=== PATIENT | female | born 1990 | race Caucasian/White ===

== ENCOUNTER → 2017-03-02 | Outpatient (CLI) | payer OTHER ==
--- NOTE | 2017-03-06 11:38 | SLEEPCENT ---
DATE OF PROCEDURE: 03/02/2017 ORDERED BY: Paulina Jasmine NP Nocturnal polysomnography was performed for evaluation of sleep physiology in this patient with a history of excessive somnolence and nonrestorative sleep. 7 hours and 44 minutes of data were reviewed. There were 416 minutes of sleep identified. Sleep latency was normal at 16 minutes. Rapid eye movement (REM) was normal at 87 minutes. Sleep architecture was severely fragmented with maintenance of reasonable sleep progression in 3 REM cycles. Overall sleep efficiency was 92%, but there was reduction in REM time. EKG showed a sinus rhythm with premature atrial contractions (PACs). Average heart rate 63 beats per minute. EEG showed reasonably normal waveforms for awake and sleep. There were 533 respiratory events identified of 10 seconds in duration or greater for an apnea hypopnea index of 76.9. The events were primarily obstructive, not related to sleep stage nor body posture. Arousals from respiratory events occurred 23.8 times per hour and oxygen desaturations were seen into the low 80s. Remaining measures of sleep physiology were reasonably normal. IMPRESSION: Very severe obstructive sleep apnea syndrome (G47.33). Apnea hypopnea index 76.9. RECOMMENDATION: The patient should be encouraged to return to the sleep disorder center at her earliest convenience for pressure therapy. In the interim, alcohol and sedative avoidance should be practiced and caution exercised during the operation of motor vehicles. Edited: 03/06/2017 Stephanie lara
== END ==
LOC: M SLEEP 19:40
PROVIDERS: ATTEND Nurse Practitioner Adult Health
DX: G47.33 Obstructive sleep apnea (adult) (pediatric) (principal)

== ENCOUNTER → 2017-04-01 | Outpatient (CLI) | payer OTHER | LOC: M SLEEP 20:00 | PROVIDERS: ATTEND Nurse Practitioner Adult Health | DX: G47.33 Obstructive sleep apnea (adult) (pediatric) (principal) ==

== ENCOUNTER → 2017-05-04 | Outpatient (REF) | payer OTHER ==
[2017-05-04 15:15] LABS: CONTROL LINE HCG INT CTR LINE PRESENT; HCG, SERUM QUALITATIVE NEGATIVE (NEGATIVE)
== END ==
LOC: M LABSMT 13:40
DX: N91.1 Secondary amenorrhea (principal)

== ENCOUNTER 2017-10-03 22:11 | Emergency (ER) | payer OTHER ==
[2017-10-03] MEDS: NS 1,000 ML IV (23:00)
[2017-10-03 23:59] LABS: BASO # 0.1 10^3/uL (0.0-0.2); BASO % 0.4 % (0.0-1.0); EOS # 0.1 10^3/uL (0.0-0.50); EOS % 1.2 % (0.0-3.0); HEMATOCRIT 35.9 % (36.0-47.0); HEMOGLOBIN 12.3 g/dl (12.0-15.5); IMMATURE GRANULOCYTE % 0.4 % (0-3.0); LYMPH # 3.6 10^3/uL (1.5-6.5); LYMPH % 31.1 % (24.0-44.0); MEAN CORPUSCULAR HEMOGLOBIN 28.7 pg (27.0-33.0); MEAN CORPUSCULAR HGB CONC 34.3 g/dl (32.0-36.5); MEAN CORPUSCULAR VOLUME 83.9 fl (80.0-96.0); MONO # 0.6 10^3/uL (0.0-0.8); NEUTROPHILS # 7.1 10^3/uL (1.8-7.7); NEUTROPHILS % 61.9 % (36.0-66.0); PLATELET COUNT, AUTOMATED 229 10^3/uL (150-450); RED BLOOD COUNT 4.28 10^6/uL (4.00-5.40); WHITE BLOOD COUNT 11.5 10^3/uL (4.0-10.0)
[2017-10-04 00:23] LABS: ALBUMIN 3.5 GM/DL (3.2-5.2); ALBUMIN/GLOBULIN RATIO 0.95 (1.00-1.93); ALKALINE PHOSPHATASE 87 U/L (45-117); ALT/SGPT 22 U/L (12-78); ANION GAP 9 MEQ/L (8-16); AST/SGOT 14 U/L (7-37); BILIRUBIN,DIRECT < 0.1 MG/DL (0.0-0.2); BILIRUBIN,TOTAL 0.2 MG/DL (0.2-1.0); BLOOD UREA NITROGEN 17 MG/DL (7-18); CALCIUM LEVEL 8.3 MG/DL (8.5-10.1); CARBON DIOXIDE LEVEL 26 MEQ/L (21-32); CHLORIDE LEVEL 106 MEQ/L (98-107); CPK CREATINE PHOSPHOKINASE 123 U/L (26-192); CREATININE FOR GFR 1.17 MG/DL (0.55-1.30); GLUCOSE, FASTING 93 MG/DL (70-100); POTASSIUM SERUM 3.5 MEQ/L (3.5-5.1); SODIUM LEVEL 141 MEQ/L (136-145); TOTAL PROTEIN 7.2 GM/DL (6.4-8.2); TROPONIN I < 0.02 NG/ML (< 0.10)
[2017-10-04 00:29] LABS: CK-MB VALUE MASS < 1.0 NG/ML (<3.6); MB/CK RELATIVE INDEX 0.81 (< OR =4)
[2017-10-04] MEDS ORDERED: ISOVUE-370 76% 100ML VIAL (Q9967) As Ordered (00:46)
[2017-10-04 01:38] LABS: APPEARANCE, URINE CLOUDY (CLEAR); BACTERIA, URINE AUTO 2+ (NEGATIVE); BILIRUBIN, URINE AUTO NEGATIVE (NEGATIVE); BLOOD, URINE BLOOD 3+ (NEGATIVE); COLOR, URINE YELLOW (YELLOW); GLUCOSE, URINE (UA) AUTO NEGATIVE (NEGATIVE); KETONE, URINE AUTO NEGATIVE (NEGATIVE); LEUKOCYTE ESTERASE, URINE AUTO 3+ (NEGATIVE); MUCUS, URINE SMALL (NEGATIVE); NITRITE, URINE AUTO NEGATIVE (NEGATIVE); PROTEIN, URINE AUTO 1+ mg/dL (NEGATIVE); RBC, URINE AUTO TNTC /HPF (0-3); SPECIFIC GRAVITY URINE AUTO 1.014 (1.002-1.035); SQUAMOUS EPITHELIAL CELL UR AU 5 /HPF (0-6); UROBILINOGEN, URINE AUTO 0.2 mg/dL (0.0-2.0); WBC, URINE AUTO 63 /HPF (0-3)
== END 2017-10-04 05:30 | disposition home or self-care (01) ==
LOC: M ED 10-04 05:30
DX: R07.89 Other chest pain (principal); R55 Syncope and collapse; R00.2 Palpitations; R20.9 Unspecified disturbances of skin sensation; Z88.0 Allergy status to penicillin; Z88.1 Allergy status to other antibiotic agents; Z79.899 Other long term (current) drug therapy
CPT/HCPCS: Q9967

== ENCOUNTER → 2017-11-23 | Outpatient (CLI) | payer OTHER | LOC: M SMT 09:27 | DX: R00.2 Palpitations (principal); E66.01 Morbid (severe) obesity due to excess calories; E55.9 Vitamin D deficiency, unspecified ==

== ENCOUNTER → 2017-11-23 | Outpatient (CLI) | payer OTHER ==
[2017-11-23 14:02] LABS: ANION GAP 7 MEQ/L (8-16); BLOOD UREA NITROGEN 15 MG/DL (7-18); CALCIUM LEVEL 9.1 MG/DL (8.5-10.1); CARBON DIOXIDE LEVEL 25 MEQ/L (21-32); CHLORIDE LEVEL 108 MEQ/L (98-107); CHOLESTEROL LEVEL 193 MG/DL (<200); CHOLESTEROL RISK RATIO 3.784 (<5); CREATININE FOR GFR 0.97 MG/DL (0.55-1.30); GLOMERULAR FILTRATION RATE > 60.0 (>60); GLUCOSE, FASTING 86 MG/DL (70-100); HDL CHOLESTEROL 51 MG/DL (> 40); HDL CHOLESTEROL 51 MG/DL (>40); LDL CHOLESTEROL 103.8 MG/DL (<100); NON-HDL-C 142 MG/DL; POTASSIUM SERUM 4.4 MEQ/L (3.5-5.1); SODIUM LEVEL 140 MEQ/L (136-145); TRIGLYCERIDES LEVEL 191 MG/DL (<150)
== END ==
LOC: M SMT 09:28
DX: R00.2 Palpitations (principal); E55.9 Vitamin D deficiency, unspecified; E66.01 Morbid (severe) obesity due to excess calories
CPT/HCPCS: 84443

== ENCOUNTER → 2019-02-03 | Outpatient (CLI) | payer OTHER ==
[~2019-02-03] MED LIST: ATEN25TA PO
--- NOTE | 2019-02-03 11:26 | REP ---
Four views right ankle. Indication: Right ankle pain. Comparison: 12/10/2012. Findings: There is no acute fracture, subluxation or dislocation. Alignment is anatomic. Impression: No acute fracture. Electronically Signed by Frank Nolan DO 02/03/2019 11:17 A
--- NOTE | 2019-02-03 11:36 | REP ---
Four views right foot: 02/03/2019. Indication: Right foot pain. Comparison: 12/10/2012. Findings: There is no acute fracture, subluxation or dislocation. No osseous destructive lesions are present. Bony alignment is anatomic. Impression: No acute fracture. Electronically Signed by Frank Nolan DO 02/03/2019 11:27 A
== END ==
LOC: M SMT 10:56
PROVIDERS: ATTEND Physician Assistant
DX: M25.571 Pain in right ankle and joints of right foot (principal)

== ENCOUNTER → 2019-07-17 | Outpatient (REF) | payer OTHER | LOC: M LAB REF 12:20 | PROVIDERS: ATTEND Nurse Practitioner Family | DX: N76.0 Acute vaginitis (principal) ==

== ENCOUNTER 2019-08-30 04:22 | Emergency (ER) | payer OTHER ==
[~2019-08-30] VITALS: Ht 162.6 cm; Wt 143.9 kg
[2019-08-30] MEDS ORDERED: QC A650T3 PO (04:29)
[2019-08-30] MEDS ORDERED: LEVO50TA5 PO (04:29)
[2019-08-30] MEDS ORDERED: OMEP40CA97 PO (04:29)
[2019-08-30 05:06] LABS: BASO % 0.3 % (0.0-1.0); EOS # 0.1 10^3/uL (0.0-0.5); EOS % 0.8 % (0.0-3.0); HEMATOCRIT 38.2 % (36.0-47.0); HEMOGLOBIN 12.6 g/dl (12.0-15.5); LYMPH # 2.4 10^3/uL (1.5-5.0); LYMPH % 20.2 % (24.0-44.0); MONO # 0.6 10^3/uL (0.0-0.8); MONO % 4.7 % (0.0-5.0); NEUTROPHILS # 8.7 10^3/uL (1.5-8.5); NEUTROPHILS % 73.6 % (36.0-66.0); PLATELET COUNT, AUTOMATED 226 10^3/uL (150-450); RED BLOOD COUNT 4.34 10^6/uL (4.00-5.40); WHITE BLOOD COUNT 11.8 10^3/uL (4.0-10.0)
[2019-08-30 05:29] LABS: ALBUMIN 3.8 GM/DL (3.2-5.2); ALT/SGPT 33 U/L (12-78); BILIRUBIN,DIRECT < 0.1 MG/DL (0.0-0.2); BILIRUBIN,TOTAL 0.3 MG/DL (0.2-1.0); LIPASE 107 U/L (73-393); TOTAL PROTEIN 7.4 GM/DL (6.4-8.2)
[2019-08-30] MEDS ORDERED: MORPHINE 4 MG/ML 1ML VIAL/SYRINGE (J2270) IV ONE (05:45)
[2019-08-30] MEDS ORDERED: GASTROGRAFIN SOLUTION 30ML (Q9963) PO SCH (05:45)
[2019-08-30] MEDS ORDERED: METOCLOPRAMIDE INJ 10MG/2ML VIAL (J2765 PER 1) IV ONE (05:45)
[2019-08-30] MEDS ORDERED: ISOVUE-370 76% 100ML VIAL As Ordered ONE (06:26)
--- NOTE | 2019-08-30 07:09 | REPVR ---
PROCEDURE INFORMATION: Exam: CT Abdomen And Pelvis With Contrast Exam date and time: 08/30/2019 6:19 AM Age: 29 years old Clinical indication: Abdominal pain; Localized; Right; Additional info: R sided pain TECHNIQUE: Imaging protocol: Computed tomography of the abdomen and pelvis with intravenous contrast. Radiation optimization: All CT scans at this facility use at least one of these dose optimization techniques: automated exposure control; mA and/or kV adjustment per patient size (includes targeted exams where dose is matched to clinical indication); or iterative reconstruction. Contrast material: ISO; Contrast volume: 100 ml; Contrast route: AC; COMPARISON: No relevant prior studies available. FINDINGS: Lungs: Bilateral dependent atelectasis. Liver: Mild hepatomegaly. Gallbladder and bile ducts: Cholelithiasis. No specific evidence of acute cholecystitis. Pancreas: Normal. No ductal dilation. Spleen: Normal. No splenomegaly. Adrenals: Normal. No mass. Kidneys and ureters: Normal. No hydronephrosis. Stomach and bowel: Unremarkable. No obstruction. No mucosal thickening. Appendix: No evidence of appendicitis. Intraperitoneal space: Unremarkable. No free air. No significant fluid collection. Vasculature: Unremarkable. No abdominal aortic aneurysm. Lymph nodes: Scattered subcentimeter nonspecific mesenteric lymph nodes. Bladder: Unremarkable as visualized. Reproductive: Unremarkable as visualized. Bones/joints: Unremarkable. No acute fracture. Soft tissues: Small fat containing umbilical hernia. IMPRESSION: Cholelithiasis. No specific evidence of acute cholecystitis. Mild hepatomegaly. No bowel obstruction. Normal appendix. No hydronephrosis or nephrolithiasis bilaterally. Electronically signed by: Maco Howe On 08/30/2019 07:09:17 AM
[2019-08-30 07:48] VITALS: BP 124/67
[2019-09-16] MEDS ORDERED: IBUP-1022 PO (15:14)
== END 2019-08-30 07:50 | disposition home or self-care (01) ==
LOC: M ED 04:22
DX: K80.20 Calculus of gallbladder without cholecystitis without obstruction (principal); I10 Essential (primary) hypertension; E03.9 Hypothyroidism, unspecified; K21.9 Gastro-esophageal reflux disease without esophagitis; E66.9 Obesity, unspecified; Z79.899 Other long term (current) drug therapy; Z79.890 Hormone replacement therapy; Z88.0 Allergy status to penicillin; Z88.1 Allergy status to other antibiotic agents; Z88.8 Allergy status to other drugs, medicaments and biological substances
CPT/HCPCS: 74177; 80047; 80076; 81001; 83690; 84702; 85025; 87086; 96374; 96375; 99284; J2270; J2765; Q9967

== ENCOUNTER → 2019-09-17 | Outpatient (CLI) | payer OTHER ==
[~2019-09-17] MED LIST changes: +IBUP-1022 PO; +LEVO50TA5 PO; +NORC1TAB7 PO; +OMEP40CA97 PO; +QC A650T3 PO
--- NOTE | 2019-09-18 08:42 | ECGEPIP ---
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 No significant change from 10/03/17 Electronically Signed on 09-18-2019 8:42:25 EDT by Preet Raman
== END ==
LOC: M EKG 14:39
PROVIDERS: ATTEND Anesthesiology
DX: I10 Essential (primary) hypertension (principal); E03.9 Hypothyroidism, unspecified; R12 Heartburn; F41.9 Anxiety disorder, unspecified; G47.30 Sleep apnea, unspecified

== ENCOUNTER → 2019-09-20 | Outpatient (CLI) | payer OTHER | LOC: M LABSMTC 09:59 | PROVIDERS: ATTEND Anesthesiology | DX: Z01.818 Encounter for other preprocedural examination (principal); Z11.59 Encounter for screening for other viral diseases | CPT/HCPCS: C9803; U0003 ==

== ENCOUNTER 2019-09-22 14:50 | Emergency (ER) | payer OTHER ==
[~2019-09-22] VITALS: Ht 162.6 cm; Wt 138.0 kg
[~2019-09-22 14:50] MED LIST changes: -NORC1TAB7 PO
[2019-09-22 15:42] LABS: BASO % 0.3 % (0.0-1.0); EOS # 0.1 10^3/uL (0.0-0.5); EOS % 0.7 % (0.0-3.0); HEMATOCRIT 38.4 % (36.0-47.0); HEMOGLOBIN 12.8 g/dl (12.0-15.5); LYMPH # 2.3 10^3/uL (1.5-5.0); LYMPH % 19.8 % (24.0-44.0); MEAN CORPUSCULAR HEMOGLOBIN 29.2 pg (27.0-33.0); MEAN CORPUSCULAR HGB CONC 33.3 g/dl (32.0-36.5); MEAN CORPUSCULAR VOLUME 87.7 fl (80.0-96.0); MONO # 0.6 10^3/uL (0.0-0.8); MONO % 5.5 % (0.0-5.0); NEUTROPHILS # 8.5 10^3/uL (1.5-8.5); NEUTROPHILS % 73.3 % (36.0-66.0); PLATELET COUNT, AUTOMATED 185 10^3/uL (150-450); RED BLOOD COUNT 4.38 10^6/uL (4.00-5.40); WHITE BLOOD COUNT 11.5 10^3/uL (4.0-10.0)
[2019-09-22 16:07] LABS: HCG, SERUM QUALITATIVE NEGATIVE (NEGATIVE)
[2019-09-22 16:58] LABS: ALT/SGPT 235 U/L (12-78); BILIRUBIN,DIRECT 0.8 MG/DL (0.0-0.2); BILIRUBIN,TOTAL 1.4 MG/DL (0.2-1.0); BLOOD UREA NITROGEN 10 MG/DL (7-18); CALCIUM LEVEL 9.1 MG/DL (8.5-10.1); CARBON DIOXIDE LEVEL 23 MEQ/L (21-32); CHLORIDE LEVEL 107 MEQ/L (98-107); CREATININE FOR GFR 0.96 MG/DL (0.55-1.30); GLOMERULAR FILTRATION RATE > 60.0 (>60); GLUCOSE, FASTING 91 MG/DL (70-100); LIPASE 96 U/L (73-393); SODIUM LEVEL 138 MEQ/L (136-145); TOTAL PROTEIN 7.4 GM/DL (6.4-8.2)
[2019-09-22 17:10] LABS: AMYLASE 42 U/L (25-115)
[2019-09-22 18:05] VITALS: BP 136/79
--- NOTE | 2019-09-23 03:35 | REP ---
RIGHT UPPER QUADRANT ULTRASOUND: Real-time sonographic evaluation of right upper quadrant performed. Sludge and tiny stones are seen in the gallbladder. There is gallbladder wall thickening up to 6 mm. Gallbladder is moderately distended. Common bile duct is upper limits of normal at 7 mm. Liver is grossly unremarkable. Pancreas cannot be seen due to overlying bowel gas. Right kidney demonstrates no hydronephrosis with normal size at 11.4 cm in length. No free fluid is seen. IMPRESSION: Moderate distention of the gallbladder containing sludge and tiny stones. There is gallbladder wall thickening up to 6 mm. Common bile duct is 7 mm in diameter, at the upper limits of normal. No free fluid is seen. I cannot exclude cholecystitis. Electronically Signed by Arun Rodriges MD 09/24/2019 09:49 P
--- NOTE | 2019-09-23 03:49 | REP ---
CHEST, TWO VIEWS: COMPARISON: 10/03/2017 Two views of the chest are performed. I see no acute infiltrate. The heart is normal in size. There is again some widening of the mediastinal stripe on the right, unchanged. Prior CT chest showed prominent thymic tissue in the anterior mediastinum. Visualized osseous structures are unremarkable. IMPRESSION: No evidence of acute pulmonary disease. Electronically Signed by Arun Rodriges MD 09/24/2019 09:50 P
[2019-09-23] MEDS ORDERED: NORC1TAB7 PO (18:49)
== END 2019-09-22 18:06 | disposition home or self-care (01) ==
LOC: M ED 14:50
DX: N39.0 Urinary tract infection, site not specified (principal); K81.9 Cholecystitis, unspecified; Z79.899 Other long term (current) drug therapy; Z88.0 Allergy status to penicillin; Z88.1 Allergy status to other antibiotic agents; Z88.8 Allergy status to other drugs, medicaments and biological substances; F17.210 Nicotine dependence, cigarettes, uncomplicated

== ENCOUNTER 2019-09-23 13:05 | Day surgery (SDC) | payer OTHER ==
[~2019-09-23] VITALS: Ht 162.6 cm; Wt 137.9 kg
[~2019-09-23 13:05] MED LIST changes: +LIDOCAINE 1% MDV 20ML VIAL SQ PRN; +LR 1,000 ML IV ONE
[2019-09-23] MEDS ORDERED: propofoL 200 MG/20 ML VIAL As Ordered ONE (16:54)
[2019-09-23] MEDS ORDERED: ONDANSETRON 4MG/2ML VIAL As Ordered ONE (16:54)
[2019-09-23] MEDS ORDERED: LIDOCAINE 2% 100MG/5ML SDV (FOR ANES.) As Ordered ONE (16:54)
[2019-09-23] MEDS ORDERED: ROCURONIUM BROMIDE 50 MG/5 ML VIAL As Ordered ONE ×2 (16:54→19:35)
[2019-09-23] MEDS ORDERED: dexameTHASONE 4 MG/ML 1ML VIAL (J1100 PER 1MG) As Ordered ONE (16:55)
[2019-09-23] MEDS ORDERED: HYDROmorphone HCL 2 MG/ML 1ML VIAL (J1170) As Ordered ONE (16:55)
[2019-09-23] MEDS ORDERED: fentaNYL 100 MCG/2 ML INJECTION (J3010) As Ordered ONE ×2 (16:56→21:08)
[2019-09-23] MEDS ORDERED: MIDAZOLAM INJ 2MG/2ML VIAL (J2250 PER 1MG) As Ordered ONE (16:56)
[2019-09-23] MEDS ORDERED: NORC1TAB7 PO (18:49)
[2019-09-23] MEDS ORDERED: BUPIVACAINE HCL 0.25% 30ML VIAL As Ordered ONE (19:01)
[2019-09-23] MEDS ORDERED: KETOROLAC 60 MG/2 ML VIAL As Ordered ONE (19:25)
[2019-09-23] MEDS ORDERED: SUGAMMADEX SODIUM 500 MG/5 ML VIAL (BRIDION) As Ordered ONE (19:25)
[2019-09-23] MEDS ORDERED: ACETAMINOPHEN 1000MG 100ML IV BTL (OFIRMEV) (J0131 PER 10MG) As Ordered ONE (19:27)
[2019-09-23] MEDS: ONDANSETRON 4MG/2ML VIAL IV PRN ×2 (21:43→22:38)
[2019-09-23] MEDS ORDERED: fentaNYL 100 MCG/2 ML INJECTION (J3010) IV PRN ×2 (21:45→23:15)
[2019-09-23] MEDS ORDERED: LR 1,000 ML IV SCH ×2 (21:45→23:15)
[2019-09-23] MEDS ORDERED: IBUPROFEN 600 MG TAB PO PRN (22:00)
[2019-09-23] MEDS ORDERED: ACETAMINOPHEN TAB 650MG DOSE (2X325MG) PO PRN (22:00)
[2019-09-23] MEDS ORDERED: NORCO, ANEXSIA 5/325MG TABLET (HYDROcodone/ACETAMINOPHEN) PO PRN (22:00)
[2019-09-23] MEDS ORDERED: METOCLOPRAMIDE INJ 10MG/2ML VIAL (J2765 PER 1) As Ordered ONE (23:07)
[2019-09-23] MEDS ORDERED: ONDANSETRON 4MG/2ML VIAL IV PRN (23:15)
[2019-09-23] MEDS ORDERED: METOCLOPRAMIDE INJ 10MG/2ML VIAL (J2765 PER 1) IV SCH (23:15)
[2019-09-23] MEDS ORDERED: oxyCODONE 5MG TAB PO PRN (23:15)
[2019-09-24 00:03] VITALS: BP 124/66
--- NOTE | 2019-09-27 13:11 | RO ---
DATE OF PROCEDURE: 09/23/2019 PREOPERATIVE DIAGNOSIS: Symptomatic gallstones. POSTOPERATIVE DIAGNOSIS: Cholelithiasis with acute cholecystitis. PROCEDURE PERFORMED: Robotic-assisted laparoscopic cholecystectomy. SURGEON: Dr. 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 INDICATIONS FOR THE PROCEDURE: Patient is a 29-year-old woman who has had 2 years of intermittent upper abdominal discomfort. She had been seen in the emergency department for an episode of more severe pain. A CT scan confirmed cholelithiasis. Although she was discharged from the emergency department, she felt a sensation of bloating for at least a week afterwards with some persistent discomfort. Her history is concerning for acute cholecystitis and she is now for a robotic-assisted laparoscopic cholecystectomy. OPERATIVE PROCEDURE: The patient was brought to the operating room and placed on the table in a supine position. She was placed under general endotracheal anesthesia. The patient's abdomen was prepped and draped in a sterile fashion. 0.25% Marcaine was infiltrated at each of the trocar sites as needed. A short transverse left upper quadrant skin incision was made. A Veress needle was inserted and after positive hanging drop test insufflation was begun. However, insufflation pressures were high and the Veress needle was removed. I elected to place this along the midline just above the umbilicus and a second incision was made. The Veress needle was inserted and after positive hanging drop test the abdomen was insufflated with carbon dioxide gas without difficulty. An 8 mm robotic port was placed over a 5 mm scope and advanced through the abdominal wall without difficulty. Initial examination showed no evidence of Veress needle injury. An 8 mm port was placed through the left upper quadrant port site that had initially been attempted. Two additional ports were placed in the right lower quadrant. The patient was tilted to approximately 13 degrees. The Scan patient cart was brought into position and the camera port was docked. Targeting took place in the right upper quadrant and the additional robotic arms were docked appropriately. A Prograf retractor and Force bipolar were placed in the right lower quadrant sites and a hook cautery was placed in the left upper quadrant. I moved to the control console to proceed with surgery. The edge of the liver was elevated and the gallbladder was found to be quite distended and thick-walled with some patchy erythema. This was encased in omentum, which was adherent to the gallbladder. The adhesions of the omentum were lysed and the gallbladder was freed. It was possible to grasp this with the Prograf and elevate this and dissection continued to proceed along the body and then down to the neck of the gallbladder to free this from surrounding tissues. The pericholecystic tissues at the gallbladder neck were dissected. The cystic duct was fairly short and appeared slightly larger than normal. There was inflammation in the pericholecystic tissues. Once the cystic duct had been clearly identified, the duct was doubly clipped with Hem-o-elio clips and divided. An artery was identified on the medial aspect of the gallbladder wall and this was doubly clipped and divided. A second artery slightly larger was identified feeding the lateral aspect of the gallbladder wall. This was also clipped and divided. The gallbladder was then dissected free from the gallbladder bed using cautery dissection. The gallbladder was placed in a specimen pouch. The right upper quadrant was irrigated and inspected. There was no evidence of bleeding or bile leak. The patient was returned to a flat position. The robotic instruments were removed and the robot arms were undocked and the patient cart pulled aside. The abdomen was deflated and the trocars were all removed. The gallbladder was recovered at the supraumbilical site. It was necessary to extend the skin and fascial incisions slightly to allow passage of the distended gallbladder. There was one large stone palpable within the gallbladder. This was sent for permanent pathology. The fascia at the midline was closed with interrupted simple sutures of #2-0 Vicryl. The skin incisions were all closed with buried #4-0 Vicryl and Steri-Strips. Light dressings were applied. The patient tolerated the procedure well without apparent complication. She was awakened in the operating room, extubated and moved to the recovery room in stable condition.
== END 2019-09-24 00:03 | disposition home or self-care (01) ==
LOC: M SDC 13:05
PROVIDERS: ATTEND Surgery
DX: K80.10 Calculus of gallbladder with chronic cholecystitis without obstruction (principal); E03.9 Hypothyroidism, unspecified; I10 Essential (primary) hypertension; G47.30 Sleep apnea, unspecified; F41.9 Anxiety disorder, unspecified; K21.9 Gastro-esophageal reflux disease without esophagitis; Z79.899 Other long term (current) drug therapy; Z88.0 Allergy status to penicillin; Z88.1 Allergy status to other antibiotic agents
CPT/HCPCS: 47562; 81025; 88304; J0131; J1100; J1170; J1885; J2250; J2405; J2765; J3010

== ENCOUNTER → 2019-10-21 | Outpatient (CLI) | payer OTHER ==
[~2019-10-21] MED LIST changes: -LIDOCAINE 1% MDV 20ML VIAL SQ PRN; -LR 1,000 ML IV ONE; +NORC1TAB7 PO
--- NOTE | 2019-10-22 07:27 | REP ---
FOOT: REASON: Pain in the toes. FINDINGS: The joint spaces are symmetric and relatively well maintained. There is no evidence of acute fracture or destructive osseous lesion. IMPRESSION: Negative. Electronically Signed by Fam Hargrove DO 10/22/2019 09:27 A
== END ==
LOC: M RAD 14:39
PROVIDERS: ATTEND Physician Assistant
DX: M79.674 Pain in right toe(s) (principal)

== ENCOUNTER 2020-01-13 08:54 | Emergency (ER) | payer OTHER ==
[~2020-01-13] VITALS: Ht 162.6 cm; Wt 145.9 kg
[2020-01-13] MEDS ORDERED: ONDANSETRON 4MG/2ML VIAL IV ONE (10:00)
[2020-01-13] MEDS ORDERED: ACETAMINOPHEN 500 MG TAB PO ONE (10:00)
[2020-01-13 10:29] LABS: BASO % 0.5 % (0.0-1.0); EOS # 0.2 10^3/uL (0.0-0.5); EOS % 1.9 % (0.0-3.0); HEMATOCRIT 39.2 % (36.0-47.0); LYMPH # 2.9 10^3/uL (1.5-5.0); LYMPH % 32.1 % (24.0-44.0); MEAN CORPUSCULAR HGB CONC 33.2 g/dl (32.0-36.5); MEAN CORPUSCULAR VOLUME 87.3 fl (80.0-96.0); MONO # 0.5 10^3/uL (0.0-0.8); MONO % 5.6 % (0.0-5.0); NEUTROPHILS # 5.3 10^3/uL (1.5-8.5); NEUTROPHILS % 59.4 % (36.0-66.0); PLATELET COUNT, AUTOMATED 244 10^3/uL (150-450); RED BLOOD COUNT 4.49 10^6/uL (4.00-5.40); WHITE BLOOD COUNT 8.9 10^3/uL (4.0-10.0)
[2020-01-13] MEDS ORDERED: ISOVUE-370 76% 100ML VIAL As Ordered ONE (10:42)
[2020-01-13 10:54] LABS: CK-MB VALUE MASS 1.4 NG/ML (<3.6); MB/CK RELATIVE INDEX 0.86 (< OR =4); TROPONIN I 0.04 NG/ML (< 0.10)
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
[2020-01-13 12:08] VITALS: BP 118/62
== END 2020-01-13 12:10 | disposition home or self-care (01) ==
LOC: M ED 08:54
DX: S20.219A Contusion of unspecified front wall of thorax, initial encounter (principal); S16.1XXA Strain of muscle, fascia and tendon at neck level, initial encounter; V44.5XXA Car driver injured in collision with heavy transport vehicle or bus in traffic accident, initial encounter; Y92.410 Unspecified street and highway as the place of occurrence of the external cause; Y93.89 Activity, other specified; Y99.8 Other external cause status; I10 Essential (primary) hypertension; E03.9 Hypothyroidism, unspecified; K21.9 Gastro-esophageal reflux disease without esophagitis; F41.9 Anxiety disorder, unspecified; G47.33 Obstructive sleep apnea (adult) (pediatric); Z79.890 Hormone replacement therapy; Z79.899 Other long term (current) drug therapy; Z88.1 Allergy status to other antibiotic agents; Z88.0 Allergy status to penicillin; Z88.8 Allergy status to other drugs, medicaments and biological substances; Z98.890 Other specified postprocedural states; Z82.49 Family history of ischemic heart disease and other diseases of the circulatory system; Z82.3 Family history of stroke
CPT/HCPCS: 36415; 70450; 71260; 72125; 80047; 82550; 82553; 84484; 84702; 85025; 96374; 99284; J2405; Q9967

== ENCOUNTER → 2020-09-06 | Outpatient (REF) | payer OTHER | LOC: M PLALAB 14:59 | PROVIDERS: ATTEND Obstetrics & Gynecology | DX: Z12.4 Encounter for screening for malignant neoplasm of cervix (principal); R87.615 Unsatisfactory cytologic smear of cervix ==

== ENCOUNTER → 2021-03-09 | Outpatient (CLI) | payer OTHER ==
[~2021-03-09] MED LIST changes: +ISOVUE-370 76% 100ML VIAL As Ordered ONE; +OMEP40CA4 PO; -OMEP40CA97 PO
--- NOTE | 2021-03-09 09:40 | REP ---
INDICATION: F/U ABN CHEST CT COMPARISON: 01/13/2020 TECHNIQUE: Axial contrast enhanced images from the thoracic inlet to the upper abdomen with coronal and sagittal reformations using 75 ml Isovue 370 intravenous contrast material. [address] CT examination was performed using the following dose reduction techniques: Automated exposure control, adjustment of mA and/or kv according to the patient's size, and use of iterative reconstruction technique. FINDINGS: Bilateral lung bashir are well aerated and clear. No acute consolidation, suspicious nodule or mass. No effusion. No pneumothorax. Tracheobronchial tree is patent. Mediastinum demonstrates normal thoracic aorta, pulmonary vasculature, and heart/pericardium. No adenopathy. Visualized portions of the thyroid gland are normal. Surrounding musculoskeletal structures are intact. Limited upper abdomen demonstrates normal bilateral adrenal glands. IMPRESSION: Normal contrast-enhanced chest CT. No acute mediastinal or pleuroparenchymal process. <Electronically signed by Amish Bobby > 03/09/21 [id number]
== END ==
LOC: M RAD 07:43
PROVIDERS: ATTEND Internal Medicine
DX: R91.8 Other nonspecific abnormal finding of lung field (principal)
CPT/HCPCS: 71260; Q9967

== ENCOUNTER → 2021-06-03 | Outpatient (REF) | payer OTHER ==
[~2021-06-03] MED LIST changes: -ISOVUE-370 76% 100ML VIAL As Ordered ONE
[2021-06-03 16:33] LABS: HCG, SERUM QUALITATIVE NEGATIVE (NEGATIVE)
== END ==
LOC: M LAB REF 16:05
PROVIDERS: ATTEND Registered Nurse
DX: N91.2 Amenorrhea, unspecified (principal)

== ENCOUNTER → 2021-11-03 | Outpatient (CLI) | payer OTHER ==
[2021-11-03 10:28] LABS: ESTRADIOL 1524.8 PG/ML; PROGESTERONE 49.06 NG/ML
== END ==
LOC: M LAB 08:10
PROVIDERS: ATTEND Obstetrics & Gynecology Reproductive Endocrinology
DX: Z31.49 Encounter for other procreative investigation and testing (principal)

== ENCOUNTER → 2021-11-07 | Outpatient (CLI) | payer OTHER ==
[2021-11-07 12:10] LABS: PROGESTERONE 114.6 NG/ML
== END ==
LOC: M LAB 08:18
PROVIDERS: ATTEND Obstetrics & Gynecology Reproductive Endocrinology
DX: Z32.00 Encounter for pregnancy test, result unknown (principal)

== ENCOUNTER → 2021-11-09 | Outpatient (CLI) | payer OTHER ==
[2021-11-09 09:39] LABS: THYROID STIMULATING HORMONE 4.07 uIU/ML (0.358-3.740)
[2021-11-09 22:07] LABS: ESTRADIOL 1733.8 PG/ML
[2021-11-09 22:39] LABS: PROGESTERONE 136.87 NG/ML
== END ==
LOC: M LAB 08:20
PROVIDERS: ATTEND Obstetrics & Gynecology Reproductive Endocrinology
DX: Z32.01 Encounter for pregnancy test, result positive (principal)

== ENCOUNTER → 2021-11-11 | Outpatient (CLI) | payer OTHER ==
[2021-11-11 09:19] LABS: ESTRADIOL 2124.6 PG/ML
[2021-11-11 09:41] LABS: PROGESTERONE 183.25 NG/ML
== END ==
LOC: M LAB 08:05
PROVIDERS: ATTEND Obstetrics & Gynecology Reproductive Endocrinology
DX: Z32.01 Encounter for pregnancy test, result positive (principal)

== ENCOUNTER → 2021-11-18 | Outpatient (CLI) | payer OTHER | LOC: M RAD 13:06 | PROVIDERS: ATTEND Obstetrics & Gynecology Reproductive Endocrinology | DX: O09.00 Supervision of pregnancy with history of infertility, unspecified trimester (principal); O36.80X0 Pregnancy with inconclusive fetal viability, not applicable or unspecified ==

== ENCOUNTER → 2021-11-18 | Outpatient (CLI) | payer OTHER ==
[2021-11-18 10:21] LABS: PROGESTERONE 143.36 NG/ML
== END ==
LOC: M LAB 08:05
PROVIDERS: ATTEND Obstetrics & Gynecology Reproductive Endocrinology
DX: O09.00 Supervision of pregnancy with history of infertility, unspecified trimester (principal); Z3A.00 Weeks of gestation of pregnancy not specified

== ENCOUNTER → 2021-11-29 | Outpatient (CLI) | payer OTHER ==
[2021-11-29 17:37] LABS: ESTRADIOL 2114.3 PG/ML
[2021-11-29 18:02] LABS: PROGESTERONE 111.99 NG/ML
== END ==
LOC: M LAB 15:17
PROVIDERS: ATTEND Obstetrics & Gynecology Reproductive Endocrinology
DX: O09.00 Supervision of pregnancy with history of infertility, unspecified trimester (principal); Z3A.00 Weeks of gestation of pregnancy not specified

== ENCOUNTER → 2021-11-29 | Outpatient (CLI) | payer OTHER | LOC: M WHC 08:39 | PROVIDERS: ATTEND Obstetrics & Gynecology Reproductive Endocrinology | DX: O09.00 Supervision of pregnancy with history of infertility, unspecified trimester (principal); Z3A.01 Less than 8 weeks gestation of pregnancy ==

== ENCOUNTER 2021-12-01 17:47 | Emergency (ER) | payer OTHER ==
[~2021-12-01] VITALS: Ht 162.6 cm; Wt 143.5 kg
[2021-12-01 17:47] VITALS: BP 158/86
[2021-12-01 19:37] LABS: BASO # 0.1 10^3/uL (0.0-0.2); BASO % 0.4 % (0.0-1.0); EOS # 0.3 10^3/uL (0.0-0.5); EOS % 1.8 % (0.0-3.0); HEMATOCRIT 39.1 % (36.0-47.0); HEMOGLOBIN 13.1 g/dl (12.0-15.5); LYMPH % 21.2 % (24.0-44.0); MEAN CORPUSCULAR HEMOGLOBIN 29.6 pg (27.0-33.0); MEAN CORPUSCULAR HGB CONC 33.5 g/dl (32.0-36.5); MEAN CORPUSCULAR VOLUME 88.5 fl (80.0-96.0); MONO % 5.1 % (2.0-8.0); NEUTROPHILS # 13.2 10^3/uL (1.5-8.5); NEUTROPHILS % 70.6 % (36.0-66.0); PLATELET COUNT, AUTOMATED 274 10^3/uL (150-450); RED BLOOD COUNT 4.42 10^6/uL (4.00-5.40); WHITE BLOOD COUNT 18.7 10^3/uL (4.0-10.0)
[2021-12-01 19:51] LABS: INR 0.89; PROTHROMBIN TIME 12.4 SECONDS (12.7-14.5)
[2021-12-01 19:52] LABS: PARTIAL THROMBOPLASTIN TIME 30.1 SECONDS (25.9-37.0)
[2021-12-01 20:02] LABS: ERYTHROCYTE SEDIMENTATION RATE 26 mm/hr (0-20)
[2021-12-01 20:17] LABS: ALBUMIN 3.5 GM/DL (3.2-5.2); ALT/SGPT 75 U/L (12-78); BILIRUBIN,DIRECT 0.1 MG/DL (0.0-0.2); BILIRUBIN,TOTAL 0.2 MG/DL (0.2-1.0); BLOOD UREA NITROGEN 11 MG/DL (7-18); C REACTIVE PROTEIN QUANTITATIV 1.09 MG/DL (0.00-0.30); CALCIUM LEVEL 9.4 MG/DL (8.5-10.1); CARBON DIOXIDE LEVEL 24 MEQ/L (21-32); CHLORIDE LEVEL 106 MEQ/L (98-107); CREATININE FOR GFR 0.87 MG/DL (0.55-1.30); GLOMERULAR FILTRATION RATE > 60.0 (>60); GLUCOSE, FASTING 92 MG/DL (70-100); POTASSIUM SERUM 3.9 MEQ/L (3.5-5.1); SODIUM LEVEL 135 MEQ/L (136-145)
== END 2021-12-01 21:34 | disposition home or self-care (01) ==
LOC: M ED 17:47
DX: I80.01 Phlebitis and thrombophlebitis of superficial vessels of right lower extremity (principal); D72.829 Elevated white blood cell count, unspecified; E03.9 Hypothyroidism, unspecified; Z88.0 Allergy status to penicillin; Z88.1 Allergy status to other antibiotic agents; Z88.8 Allergy status to other drugs, medicaments and biological substances; Z79.899 Other long term (current) drug therapy; Z79.890 Hormone replacement therapy

== ENCOUNTER → 2021-12-28 | Outpatient (CLI) | payer OTHER ==
[2021-12-28 18:29] LABS: HEMATOCRIT 34.6 % (36.0-47.0); HEMOGLOBIN 11.8 g/dl (12.0-15.5); MEAN CORPUSCULAR HEMOGLOBIN 30.1 pg (27.0-33.0); MEAN CORPUSCULAR HGB CONC 34.1 g/dl (32.0-36.5); MEAN CORPUSCULAR VOLUME 88.3 fl (80.0-96.0); PLATELET COUNT, AUTOMATED 222 10^3/uL (150-450); RED BLOOD COUNT 3.92 10^6/uL (4.00-5.40); WHITE BLOOD COUNT 14.5 10^3/uL (4.0-10.0)
[2021-12-28 19:14] LABS: TOTAL PROTEIN,RANDOM URINE 17.2 MG/DL (0.0-12.0)
[2021-12-28 19:17] LABS: ALBUMIN 3.3 GM/DL (3.2-5.2); ALT/SGPT 112 U/L (12-78); BILIRUBIN,TOTAL 0.4 MG/DL (0.2-1.0); BLOOD UREA NITROGEN 9 MG/DL (7-18); CALCIUM LEVEL 9.1 MG/DL (8.5-10.1); CARBON DIOXIDE LEVEL 21 MEQ/L (21-32); CHLORIDE LEVEL 105 MEQ/L (98-107); GLOMERULAR FILTRATION RATE > 60.0 (>60); GLUCOSE, FASTING 71 MG/DL (70-100); POTASSIUM SERUM 3.7 MEQ/L (3.5-5.1); SODIUM LEVEL 136 MEQ/L (136-145)
[2021-12-28 20:02] LABS: GC DNA AMPLIFICATION NEGATIVE (NEGATIVE)
[2021-12-28 20:31] LABS: HEPATITIS C VIRUS ABY INDEX < 0.0 INDEX (<0.8)
[2021-12-28 20:32] LABS: HIV 1&2 SCREEN CENTAUR NEGATIVE (NEGATIVE)
== END ==
LOC: M LAB 16:55
PROVIDERS: ATTEND Obstetrics & Gynecology
DX: Z36.9 Encounter for antenatal screening, unspecified (principal)

== ENCOUNTER → 2022-01-09 | Outpatient (CLI) | payer OTHER | LOC: M LAB 16:55 | PROVIDERS: ATTEND Obstetrics & Gynecology | DX: Z36.9 Encounter for antenatal screening, unspecified (principal) ==

== ENCOUNTER → 2022-02-17 | Outpatient (CLI) | payer OTHER | LOC: M WHC 07:30 | PROVIDERS: ATTEND Obstetrics & Gynecology | DX: O16.2 Unspecified maternal hypertension, second trimester (principal); Z3A.18 18 weeks gestation of pregnancy ==

== ENCOUNTER → 2022-03-08 | Outpatient (CLI) | payer OTHER ==
[2022-03-08 11:06] LABS: FREE T4 0.96 NG/DL (0.89-1.76); THYROID STIMULATING HORMONE 1.902 uIU/ML (0.55-4.78)
== END ==
LOC: M PLALAB 08:39
PROVIDERS: ATTEND Advanced Practice Midwife
DX: O99.280 Endocrine, nutritional and metabolic diseases complicating pregnancy, unspecified trimester (principal); Z3A.00 Weeks of gestation of pregnancy not specified

== ENCOUNTER → 2022-03-21 | Outpatient (CLI) | payer OTHER | LOC: M WHC 14:38 | PROVIDERS: ATTEND Advanced Practice Midwife | DX: Z36.89 Encounter for other specified antenatal screening (principal); Z3A.23 23 weeks gestation of pregnancy ==

== ENCOUNTER → 2022-04-14 | Outpatient (CLI) | payer OTHER ==
[2022-04-14 15:50] LABS: HEMATOCRIT 31.5 % (36.0-47.0); HEMOGLOBIN 10.2 g/dl (12.0-15.5); MEAN CORPUSCULAR HEMOGLOBIN 29.6 pg (27.0-33.0); MEAN CORPUSCULAR HGB CONC 32.4 g/dl (32.0-36.5); MEAN CORPUSCULAR VOLUME 91.3 fl (80.0-96.0); PLATELET COUNT, AUTOMATED 183 10^3/uL (150-450); RED BLOOD COUNT 3.45 10^6/uL (4.00-5.40); WHITE BLOOD COUNT 12.6 10^3/uL (4.0-10.0)
== END ==
LOC: M PLALAB 11:51
PROVIDERS: ATTEND Advanced Practice Midwife
DX: Z34.02 Encounter for supervision of normal first pregnancy, second trimester (principal)

== ENCOUNTER → 2022-05-17 | Outpatient (CLI) | payer OTHER ==
[2022-05-17 18:01] LABS: ALBUMIN 2.8 G/DL (3.2-5.2); ALKALINE PHOSPHATASE 143 U/L (46-116); ALT/SGPT 61 U/L (7.0-40); AST/SGOT 35 U/L (<34); BILIRUBIN,TOTAL 0.4 MG/DL (0.3-1.2); BLOOD UREA NITROGEN 9 MG/DL (9-23); CALCIUM LEVEL 8.7 MG/DL (8.5-10.1); CARBON DIOXIDE LEVEL 25 MMOL/L (20-31); CHLORIDE LEVEL 106 MMOL/L (98-107); CREATININE FOR GFR 0.71 MG/DL (0.55-1.30); GLOMERULAR FILTRATION RATE > 60.0 (>60); GLUCOSE, FASTING 96 MG/DL (60-100); POTASSIUM SERUM 3.7 MMOL/L (3.5-5.1); SODIUM LEVEL 138 MMOL/L (136-145); TOTAL PROTEIN 6.5 G/DL (5.7-8.2)
== END ==
LOC: M LAB 17:03
PROVIDERS: ATTEND Obstetrics & Gynecology
DX: O99.713 Diseases of the skin and subcutaneous tissue complicating pregnancy, third trimester (principal); L29.9 Pruritus, unspecified; Z3A.00 Weeks of gestation of pregnancy not specified

== ENCOUNTER → 2022-05-26 | Outpatient (CLI) | payer OTHER | LOC: M WHC 07:12 | PROVIDERS: ATTEND Obstetrics & Gynecology | DX: O16.3 Unspecified maternal hypertension, third trimester (principal); Z3A.34 34 weeks gestation of pregnancy ==

== ENCOUNTER → 2022-06-02 | Outpatient (CLI) | payer OTHER | LOC: M WHC 09:31 | PROVIDERS: ATTEND Obstetrics & Gynecology | DX: O28.8 Other abnormal findings on antenatal screening of mother (principal); Z3A.00 Weeks of gestation of pregnancy not specified ==

== ENCOUNTER → 2022-06-13 | Outpatient (REF) | payer OTHER | LOC: M SFHCWAGY 10:09 | PROVIDERS: ATTEND Specialist | DX: Z36.85 Encounter for antenatal screening for Streptococcus B (principal) ==

== ENCOUNTER → 2022-06-14 | Outpatient (REF) | payer OTHER | LOC: M PLALAB 07:49 | PROVIDERS: ATTEND Specialist | DX: Z53.9 Procedure and treatment not carried out, unspecified reason (principal) ==

== ENCOUNTER → 2022-06-21 | Outpatient (CLI) | payer OTHER | LOC: M WHC 14:06 | PROVIDERS: ATTEND Obstetrics & Gynecology | DX: O16.3 Unspecified maternal hypertension, third trimester (principal); Z3A.36 36 weeks gestation of pregnancy ==

== ENCOUNTER → 2022-06-28 | Outpatient (CLI) | payer OTHER | LOC: M WHC 12:22 | PROVIDERS: ATTEND Obstetrics & Gynecology | DX: O16.3 Unspecified maternal hypertension, third trimester (principal); Z3A.00 Weeks of gestation of pregnancy not specified ==

== ENCOUNTER 2022-07-02 08:23 | Outpatient (CLI) | payer OTHER ==
[~2022-07-02] VITALS: Ht 162.6 cm; Wt 142.6 kg
[2022-07-02] MEDS ORDERED: PRENTAB9 PO (08:34)
[2022-07-02] MEDS ORDERED: FERR324T21 PO (08:36)
[2022-07-02] MEDS ORDERED: LABE100T71 PO (08:36)
[2022-07-02] MEDS ORDERED: CARBOPROST TROMETHAMINE 250 MCG/ML AMP IM PRN (08:40)
[2022-07-02] MEDS ORDERED: LACTATED RINGER'S 1000 ML IV PRN (08:40)
[2022-07-02] MEDS ORDERED: HOME MED LIST COMPLETE! XX SCH (08:40)
[2022-07-02] MEDS ORDERED: OXYTOCIN DRIP 30 UNITS in IV 1 EA IV PRN ×4 (08:40)
[2022-07-02] MEDS ORDERED: LR 1,000 ML IV SCH (08:40)
[2022-07-02] MEDS ORDERED: METHYLERGONOVINE MALEATE 0.2MG/ML 1ML VIAL IM PRN (08:40)
[2022-07-02] MEDS ORDERED: TRANEXAMIC ACID INJection 1,000 MG in NS 100 ML IV PRN (08:40)
[2022-07-02 08:46] VITALS: BP 125/73
[2022-07-02] MEDS ORDERED: LEVO75TA4 PO (09:37)
[2022-07-02 10:17] LABS: HEMATOCRIT 29.7 % (36.0-47.0); HEMOGLOBIN 10.3 g/dl (12.0-15.5); MEAN CORPUSCULAR HEMOGLOBIN 30.5 pg (27.0-33.0); MEAN CORPUSCULAR HGB CONC 34.7 g/dl (32.0-36.5); MEAN CORPUSCULAR VOLUME 87.9 fl (80.0-96.0); PLATELET COUNT, AUTOMATED 158 10^3/uL (150-450); RED BLOOD COUNT 3.38 10^6/uL (4.00-5.40); WHITE BLOOD COUNT 9.9 10^3/uL (4.0-10.0)
[2022-07-02 10:38] LABS: URIC ACID 6.5 MG/DL (3.1-7.8)
[2022-07-02 10:41] LABS: LDH LACTATE DEHYDROGENASE 147 U/L (120-246)
[2022-07-02 10:42] LABS: ALT/SGPT 75 U/L (7.0-40); AST/SGOT 44 U/L (<34); BILIRUBIN,TOTAL 0.4 MG/DL (0.3-1.2); CREATININE FOR GFR 0.69 MG/DL (0.55-1.30); GLOMERULAR FILTRATION RATE > 60.0 (>60)
[2022-07-02 10:52] VITALS: BP 117/67
== END 2022-07-02 11:40 | disposition home or self-care (01) ==
LOC: INTOOBSV 08:23 → M LDI 08:23 → UNDOADMOB 08:23 → M LDO 08:23 → UNDODISOB 11:40 → M LDO 11:40 → EDSTATUS 07-03 11:27
PROVIDERS: ATTEND Obstetrics & Gynecology
DX: O32.2XX9 Maternal care for transverse and oblique lie, other fetus (principal); O99.213 Obesity complicating pregnancy, third trimester; E66.9 Obesity, unspecified; O43.893 Other placental disorders, third trimester; Z3A.38 38 weeks gestation of pregnancy
CPT/HCPCS: 59025; 76815; 82247; 82565; 83615; 84450; 84460; 84550; 85027; 86780; 86850; 86900; 86901; G0463

== ENCOUNTER → 2022-07-04 | Outpatient (CLI) | payer OTHER ==
[~2022-07-04] MED LIST changes: +FERR324T21 PO; +LABE100T71 PO; +LEVO75TA4 PO; +PRENTAB9 PO; +TUMS500C PO
== END ==
LOC: M LABSMTC 07:58
PROVIDERS: ATTEND Anesthesiology
DX: Z01.818 Encounter for other preprocedural examination (principal); Z11.52 Encounter for screening for COVID-19

== ENCOUNTER 2022-07-05 05:49 | Inpatient (IN) | payer OTHER ==
[~2022-07-05] VITALS: Ht 162.6 cm; Wt 141.1 kg
[2022-07-05] VITALS (11 sets, daily range): BP systolic 122–141; BP diastolic 64–90
[~2022-07-05 05:49] MED LIST changes: -TUMS500C PO
[2022-07-05 06:37] LABS: HEMATOCRIT 31.9 % (36.0-47.0); HEMOGLOBIN 10.8 g/dl (12.0-15.5); MEAN CORPUSCULAR HEMOGLOBIN 29.8 pg (27.0-33.0); MEAN CORPUSCULAR HGB CONC 33.9 g/dl (32.0-36.5); MEAN CORPUSCULAR VOLUME 88.1 fl (80.0-96.0); PLATELET COUNT, AUTOMATED 168 10^3/uL (150-450); RED BLOOD COUNT 3.62 10^6/uL (4.00-5.40); WHITE BLOOD COUNT 10.8 10^3/uL (4.0-10.0)
[2022-07-05] MEDS ORDERED: TUMS500C PO (07:25)
[2022-07-05] MEDS ORDERED: LACTATED RINGER'S 1000 ML IV STA (07:48)
[2022-07-05] MEDS ORDERED: OXYTOCIN DRIP 30 UNITS in IV 1 EA IV PRN (07:50)
[2022-07-05] MEDS ORDERED: LIDOCAINE 1% MDV 20ML VIAL INFIL PRN (07:50)
[2022-07-05] MEDS ORDERED: CARBOPROST TROMETHAMINE 250 MCG/ML AMP IM PRN (07:50)
[2022-07-05] MEDS ORDERED: TRANEXAMIC ACID INJection 1,000 MG in NS 100 ML IV PRN (07:50)
[2022-07-05] MEDS: miSOPROStol 50MCG 1/2 TABLET PO SCH ×4 (08:19→22:03)
[2022-07-05] MEDS: LABETALOL 100MG TAB PO SCH (22:20)
[2022-07-06] VITALS (46 sets, daily range): BP systolic 87–188; BP diastolic 50–102
[2022-07-06] MEDS: miSOPROStol 50MCG 1/2 TABLET PO SCH (02:14)
[2022-07-06] MEDS: LR 1,000 ML IV SCH ×3 (08:25→20:23)
[2022-07-06] MEDS: LABETALOL 100MG TAB PO SCH ×2 (08:27→21:00)
[2022-07-06] MEDS ORDERED: LR 1,000 ML IV SCH (08:40)
[2022-07-06] MEDS ORDERED: OXYTOCIN DRIP 30 UNITS in IV 1 EA IV SCH (08:40)
[2022-07-06 09:48] LABS: HEMATOCRIT 32.5 % (36.0-47.0); MEAN CORPUSCULAR HEMOGLOBIN 30.1 pg (27.0-33.0); MEAN CORPUSCULAR HGB CONC 33.8 g/dl (32.0-36.5); MEAN CORPUSCULAR VOLUME 88.8 fl (80.0-96.0); PLATELET COUNT, AUTOMATED 162 10^3/uL (150-450); RED BLOOD COUNT 3.66 10^6/uL (4.00-5.40); WHITE BLOOD COUNT 12.8 10^3/uL (4.0-10.0)
[2022-07-06] MEDS ORDERED: LR 500 ML IV PRN (09:50)
[2022-07-06] MEDS ORDERED: EPIDURAL/PCA KEYS XX PRN (09:50)
[2022-07-06] MEDS ORDERED: NALOXONE INJ 0.4MG/1ML VIAL IV PRN (09:50)
[2022-07-06] MEDS ORDERED: ONDANSETRON 4MG 2ML VIAL IV PRN (09:50)
[2022-07-06] MEDS ORDERED: ePHEDrine SULFATE 25 MG/5 ML(5MG/ML) SYRINGE IVP PRN (09:50)
[2022-07-06] MEDS ORDERED: diphenhydrAMINE 50MG/ML VIAL IV PRN (09:50)
[2022-07-06] MEDS: FENTANYL/ROPIVACAINE/NACL BAG 100 ML EPIDURAL SCH ×2 (11:07→19:09)
[2022-07-07] VITALS (28 sets, daily range): BP systolic 93–189; BP diastolic 50–106
[2022-07-07] MEDS: LR 1,000 ML IV SCH ×2 (00:53→05:12)
[2022-07-07] MEDS: FENTANYL/ROPIVACAINE/NACL BAG 100 ML EPIDURAL SCH (03:39)
[2022-07-07] MEDS ORDERED: METHYLERGONOVINE MALEATE 0.2 MG TAB PO PRN (07:15)
[2022-07-07] MEDS ORDERED: DIBUCAINE 1% OINTMENT 30GM TOP PRN (07:15)
[2022-07-07] MEDS ORDERED: RHOGAM 300MCG (1500IU) INJ IM SCH (07:15)
[2022-07-07] MEDS ORDERED: ceFAZolin SOD 2 GM in IV 1 EA IV ONE (07:20)
[2022-07-07] MEDS ORDERED: CLINDAMYCIN 900 MG in IV 1 EA IV ONE (07:45)
[2022-07-07] MEDS: LABETALOL 100MG TAB PO SCH ×2 (07:49→21:01)
[2022-07-07] MEDS ORDERED: GENTAMICIN 400 MG in D5W 100 ML IV ONE (08:00)
[2022-07-07 08:08] LABS: HEMATOCRIT 30.6 % (36.0-47.0); HEMOGLOBIN 10.1 g/dl (12.0-15.5); MEAN CORPUSCULAR HEMOGLOBIN 29.5 pg (27.0-33.0); MEAN CORPUSCULAR VOLUME 89.5 fl (80.0-96.0); PLATELET COUNT, AUTOMATED 173 10^3/uL (150-450); RED BLOOD COUNT 3.42 10^6/uL (4.00-5.40); WHITE BLOOD COUNT 18.7 10^3/uL (4.0-10.0)
[2022-07-07] MEDS: IBUPROFEN 600MG TAB PO PRN ×3 (08:12→22:47)
[2022-07-07 08:28] LABS: URIC ACID 7.4 MG/DL (3.1-7.8)
[2022-07-07 08:30] LABS: LDH LACTATE DEHYDROGENASE 242 U/L (120-246)
[2022-07-07 08:31] LABS: ALT/SGPT 242 U/L (7.0-40); AST/SGOT 150 U/L (<34); BILIRUBIN,TOTAL 0.7 MG/DL (0.3-1.2); CREATININE FOR GFR 0.92 MG/DL (0.55-1.30); GLOMERULAR FILTRATION RATE > 60.0 (>60)
[2022-07-07] MEDS: LEVOTHYROXINE 75MCG TABLET (0.075MG) PO SCH (09:17)
[2022-07-07] MEDS: PRENATAL VITAMINS CHEWABLE TABLET PO SCH (11:14)
[2022-07-07] MEDS: ACETAMINOPHEN 500 MG TAB PO PRN ×2 (11:15→19:12)
[2022-07-07] MEDS: DOCUSATE SODIUM 100MG CAPSULE PO PRN (22:46)
[2022-07-08] MEDS: LEVOTHYROXINE 75MCG TABLET (0.075MG) PO SCH (05:45)
[2022-07-08] MEDS: ACETAMINOPHEN 500 MG TAB PO PRN ×3 (05:45→20:57)
[2022-07-08 06:00] VITALS: BP 109/62
[2022-07-08 07:29] LABS: HEMATOCRIT 25.1 % (36.0-47.0); HEMOGLOBIN 8.3 g/dl (12.0-15.5); MEAN CORPUSCULAR HEMOGLOBIN 30.1 pg (27.0-33.0); MEAN CORPUSCULAR HGB CONC 33.1 g/dl (32.0-36.5); MEAN CORPUSCULAR VOLUME 90.9 fl (80.0-96.0); PLATELET COUNT, AUTOMATED 123 10^3/uL (150-450); RED BLOOD COUNT 2.76 10^6/uL (4.00-5.40); WHITE BLOOD COUNT 12.7 10^3/uL (4.0-10.0)
[2022-07-08] MEDS: PRENATAL VITAMINS CHEWABLE TABLET PO SCH (07:47)
[2022-07-08] MEDS: LABETALOL 100MG TAB PO SCH ×2 (09:00→20:58)
[2022-07-08] MEDS: IBUPROFEN 600MG TAB PO PRN (11:49)
[2022-07-08] MEDS: DOCUSATE SODIUM 100MG CAPSULE PO PRN (11:49)
[2022-07-08 18:00] VITALS: BP 137/78
[2022-07-08 20:58] VITALS: BP 130/69
[2022-07-09] MEDS: LEVOTHYROXINE 75MCG TABLET (0.075MG) PO SCH (05:52)
[2022-07-09 06:00] VITALS: BP 151/79
[2022-07-09 08:40] VITALS: BP 134/68
[2022-07-09] MEDS: PRENATAL VITAMINS CHEWABLE TABLET PO SCH (08:40)
[2022-07-09] MEDS: LABETALOL 100MG TAB PO SCH (08:40)
[2022-07-09] MEDS ORDERED: MEASLES,MUMPS,RUBELLA VACCINE INJ (MMR-II) SC.IMMUN ONE (09:00)
== END 2022-07-09 14:20 | disposition home or self-care (01) | DRG 560 ==
LOC: M LDI 05:49 → M OBS 07-07 09:45
PROVIDERS: ADMIT Obstetrics & Gynecology; ATTEND Obstetrics & Gynecology
PROC: 3E0P7GC Introduction of Other Therapeutic Substance into Female Reproductive, Via Natural or Artificial Opening (ICD-10-PCS; 2022-07-05)
PROC: 10E0XZZ Delivery of Products of Conception, External Approach (ICD-10-PCS; principal; 2022-07-07)
PROC: 0KQM0ZZ Repair Perineum Muscle, Open Approach (ICD-10-PCS; 2022-07-07)
DX: O10.02 Pre-existing essential hypertension complicating childbirth (principal); O45.93 Premature separation of placenta, unspecified, third trimester; O99.354 Diseases of the nervous system complicating childbirth; Z3A.38 38 weeks gestation of pregnancy; O75.89 Other specified complications of labor and delivery; O09.813 Supervision of pregnancy resulting from assisted reproductive technology, third trimester; O70.1 Second degree perineal laceration during delivery; O99.284 Endocrine, nutritional and metabolic diseases complicating childbirth; E03.9 Hypothyroidism, unspecified; G47.33 Obstructive sleep apnea (adult) (pediatric); Z88.0 Allergy status to penicillin; Z88.1 Allergy status to other antibiotic agents; Z88.8 Allergy status to other drugs, medicaments and biological substances; Z91.048 Other nonmedicinal substance allergy status; Z79.890 Hormone replacement therapy; Z79.899 Other long term (current) drug therapy

== ENCOUNTER → 2022-10-10 | Outpatient (REF) | payer OTHER ==
[~2022-10-10] MED LIST changes: +TUMS500C PO
== END ==
LOC: M SFHCWAGY 17:36
PROVIDERS: ATTEND Nurse Practitioner Family
DX: Z12.4 Encounter for screening for malignant neoplasm of cervix (principal); N73.9 Female pelvic inflammatory disease, unspecified; R87.615 Unsatisfactory cytologic smear of cervix

== ENCOUNTER → 2022-11-15 | Outpatient (REF) | payer OTHER | LOC: M SFHCWAGY 17:28 | PROVIDERS: ATTEND Nurse Practitioner Family | DX: Z12.4 Encounter for screening for malignant neoplasm of cervix (principal); R87.615 Unsatisfactory cytologic smear of cervix ==

== ENCOUNTER → 2022-12-12 | Outpatient (CLI) | payer OTHER | LOC: M RAD 08:15 | PROVIDERS: ATTEND Nurse Practitioner Family | DX: K42.0 Umbilical hernia with obstruction, without gangrene (principal) ==

== ENCOUNTER 2023-02-10 06:15 | Emergency (ER) | payer OTHER ==
[~2023-02-10] VITALS: Ht 162.6 cm; Wt 131.2 kg
[2023-02-10 10:23] VITALS: BP 132/83; TEMP 97.7; O2SAT 98
== END 2023-02-10 10:33 | disposition home or self-care (01) ==
LOC: M ED 06:15
DX: N85.00 Endometrial hyperplasia, unspecified (principal); R10.2 Pelvic and perineal pain; N93.9 Abnormal uterine and vaginal bleeding, unspecified; Z88.0 Allergy status to penicillin; Z91.048 Other nonmedicinal substance allergy status; Z88.8 Allergy status to other drugs, medicaments and biological substances; Z79.890 Hormone replacement therapy; Z79.899 Other long term (current) drug therapy

== ENCOUNTER 2023-05-31 21:44 | Emergency (ER) | payer OTHER ==
[~2023-05-31] VITALS: Ht 162.6 cm; Wt 131.6 kg
[2023-05-31 21:52] VITALS: TEMP 97.9
[2023-05-31 22:31] LABS: BASO # 0.1 10^3/uL (0.0-0.2); BASO % 0.3 % (0.0-1.0); EOS # 0.2 10^3/uL (0.0-0.5); EOS % 1.4 % (0.0-3.0); HEMATOCRIT 38.9 % (36.0-47.0); LYMPH # 4.3 10^3/uL (1.5-5.0); LYMPH % 29.8 % (24.0-44.0); MEAN CORPUSCULAR HEMOGLOBIN 28.6 pg (27.0-33.0); MEAN CORPUSCULAR HGB CONC 33.4 g/dl (32.0-36.5); MEAN CORPUSCULAR VOLUME 85.5 fl (80.0-96.0); MONO # 0.8 10^3/uL (0.0-0.8); MONO % 5.3 % (2.0-8.0); NEUTROPHILS # 9.1 10^3/uL (1.5-8.5); NEUTROPHILS % 62.6 % (36.0-66.0); PLATELET COUNT, AUTOMATED 225 10^3/uL (150-450); RED BLOOD COUNT 4.55 10^6/uL (4.00-5.40); WHITE BLOOD COUNT 14.5 10^3/uL (4.0-10.0)
[2023-05-31 22:59] LABS: LIPASE 41 U/L (12-53)
[2023-05-31 23:02] LABS: ALKALINE PHOSPHATASE 98 U/L (46-116); ALT/SGPT 23 U/L (7.0-40); AST/SGOT 11 U/L (<34); BILIRUBIN,DIRECT 0.1 MG/DL (<0.4); BILIRUBIN,TOTAL 0.5 MG/DL (0.3-1.2); BLOOD UREA NITROGEN 14 MG/DL (9-23); CARBON DIOXIDE LEVEL 26 MMOL/L (20-31); CHLORIDE LEVEL 103 MMOL/L (98-107); CREATININE FOR GFR 0.81 MG/DL (0.55-1.30); GLOMERULAR FILTRATION RATE > 60.0 (>60); GLUCOSE, FASTING 96 MG/DL (60-100); SODIUM LEVEL 136 MMOL/L (136-145)
[2023-05-31] MEDS: ONDANSETRON 4MG 2ML VIAL IV ONE (23:02)
[2023-05-31] MEDS: MORPHINE 4 MG/ML 1ML VIAL IV PRN (23:03)
[2023-05-31] MEDS ORDERED: ISOVUE-370 76% 100ML VIAL As Ordered ONE (23:40)
[2023-05-31 23:49] LABS: RSV AMPLIFICATION NEGATIVE (NEGATIVE)
[2023-06-01 00:09] VITALS: BP 133/74; O2SAT 95
== END 2023-06-01 02:11 | disposition home or self-care (01) ==
LOC: EDBD 21:44 → M ED 21:44
DX: K42.9 Umbilical hernia without obstruction or gangrene (principal); I10 Essential (primary) hypertension; Z88.8 Allergy status to other drugs, medicaments and biological substances; Z88.0 Allergy status to penicillin; Z88.1 Allergy status to other antibiotic agents; Z91.048 Other nonmedicinal substance allergy status; Z79.899 Other long term (current) drug therapy
CPT/HCPCS: 74177; 80053; 81001; 82248; 83605; 83690; 84702; 85025; 87086; 87631; 96374; 96375; 99284; J2405; Q9967

== ENCOUNTER → 2023-07-19 | Outpatient (REF) | payer OTHER ==
[~2023-07-19] MED LIST changes: +ACET-897 PO; +LABE100T40 PO; -LABE100T71 PO; +VYVA30CA4 PO
[2023-07-19 17:57] LABS: PERCENT SATURATION 18.8 % (13.2-45.0)
[2023-07-19 17:58] LABS: FERRITIN 49.2 NG/ML (7.3-270.7)
== END ==
LOC: M LAB REF 16:36
PROVIDERS: ATTEND Internal Medicine
DX: D64.9 Anemia, unspecified (principal)

== ENCOUNTER 2023-07-27 06:07 | Day surgery (SDC) | payer OTHER ==
[~2023-07-27] VITALS: Ht 162.6 cm; Wt 134.6 kg
[2023-07-27] MEDS ORDERED: LR 1,000 ML IV SCH (06:20)
[2023-07-27] MEDS: SCOPOLAMINE 1MG TRANSDERMAL PATCH TOP ONE (07:14)
[2023-07-27] MEDS ORDERED: propofoL 200 MG/20 ML VIAL As Ordered ONE (07:16)
[2023-07-27] MEDS ORDERED: ROCURONIUM BROMIDE 50MG/5ML VIAL As Ordered ONE (07:16)
[2023-07-27] MEDS ORDERED: LIDOCAINE 2% 100MG/5ML SDV (FOR ANES.) As Ordered ONE (07:16)
[2023-07-27] MEDS ORDERED: ONDANSETRON 4MG 2ML VIAL As Ordered ONE (07:16)
[2023-07-27] MEDS ORDERED: MIDAZOLAM INJ 2MG/2ML VIAL As Ordered ONE (07:17)
[2023-07-27] MEDS ORDERED: SUGAMMADEX SODIUM 500 MG/5 ML VIAL (BRIDION) As Ordered ONE (07:17)
[2023-07-27] MEDS ORDERED: fentaNYL 100 MCG/2 ML INJECTION As Ordered ONE (07:17)
[2023-07-27] MEDS ORDERED: ACETAMINOPHEN 1000MG 100ML IV BAG As Ordered ONE (07:17)
[2023-07-27] MEDS ORDERED: KETOROLAC 60MG 2ML VIAL As Ordered ONE (07:18)
[2023-07-27] MEDS: ceFAZolin SOD 1 GM in D5W MINI-BAG PLUS 50 ML IV ONE (07:32)
[2023-07-27] MEDS: ceFAZolin SOD 2 GM in IV 1 EA IV ONE (07:32)
[2023-07-27] MEDS ORDERED: fentaNYL 100 MCG/2 ML INJECTION IV PRN (08:45)
[2023-07-27] MEDS ORDERED: ONDANSETRON 4MG 2ML VIAL IV PRN (08:45)
[2023-07-27] MEDS: MORPHINE 2 MG/ML 1ML VIAL IV PRN (09:07)
[2023-07-27] MEDS: oxyCODONE 5MG TAB PO PRN (09:19)
[2023-07-27 09:41] VITALS: BP 119/62; TEMP 98.7; O2SAT 96
[2023-07-27] MEDS ORDERED: NORCO, ANEXSIA 5/325MG TABLET (HYDROcodone/ACETAMINOPHEN) PO PRN (15:10)
== END 2023-07-27 10:35 | disposition home or self-care (01) ==
LOC: M SDC 06:07
PROVIDERS: ATTEND Surgery
DX: K43.0 Incisional hernia with obstruction, without gangrene (principal); G47.30 Sleep apnea, unspecified; Z91.048 Other nonmedicinal substance allergy status; Z88.0 Allergy status to penicillin; Z88.1 Allergy status to other antibiotic agents; Z79.899 Other long term (current) drug therapy
CPT/HCPCS: 49592; 81025; C1781; J0131; J0665; J0690; J1100; J1885; J2250; J2405; J3010; S2900

== ENCOUNTER → 2023-10-24 | Outpatient (REF) | payer OTHER ==
[2023-10-26 08:33] LABS: LDL DIRECT 61 mg/dL (<100)
== END ==
LOC: M LAB REF 12:58
PROVIDERS: ATTEND Nurse Practitioner Family
DX: E78.2 Mixed hyperlipidemia (principal)

== ENCOUNTER → 2024-10-20 | Outpatient (CLI) | payer OTHER ==
[~2024-10-20] MED LIST changes: +CETI-24 PO; +DIPH-435 PO; +ENOX30IN3 SC; +ESTR2TAB3 VG; +FAMO20TA PO; +LEXA1TAB PO; +NALTREXONE PO; +NITR100C3 PO; +PRED5TA PO; +PROG1CAP9 VG; +PROG50IN5 IM
[2024-10-20 07:27] LABS: HCG, SERUM QUANTITATIVE 258.8 MIU/ML (<4.2)
[2024-10-20 07:31] LABS: PROGESTERONE 23.22 NG/ML
== END ==
LOC: M LAB 06:38
PROVIDERS: ATTEND Obstetrics & Gynecology Reproductive Endocrinology
DX: Z32.00 Encounter for pregnancy test, result unknown (principal)

== ENCOUNTER → 2024-10-22 | Outpatient (REF) | payer OTHER ==
[2024-10-22 11:04] LABS: HCG, SERUM QUANTITATIVE 529.6 MIU/ML (<4.2)
[2024-10-22 11:09] LABS: ESTRADIOL 455.6 PG/ML; PROGESTERONE 28.87 NG/ML
== END ==
LOC: M LAB REF 10:12
PROVIDERS: ATTEND Obstetrics & Gynecology Reproductive Endocrinology
DX: Z32.01 Encounter for pregnancy test, result positive (principal)

== ENCOUNTER → 2024-10-29 | Outpatient (CLI) | payer OTHER ==
[2024-10-29 12:59] LABS: ESTRADIOL 931.6 PG/ML; PROGESTERONE 24.9 NG/ML
[2024-10-29 13:10] LABS: HCG, SERUM QUANTITATIVE 7892.5 MIU/ML (<4.2)
== END ==
LOC: M RAD 10:24
PROVIDERS: ATTEND Obstetrics & Gynecology Reproductive Endocrinology
DX: O09.00 Supervision of pregnancy with history of infertility, unspecified trimester (principal); Z3A.00 Weeks of gestation of pregnancy not specified

== ENCOUNTER 2024-11-01 12:43 | Emergency (ER) | payer OTHER ==
[~2024-11-01] VITALS: Ht 162.6 cm; Wt 136.3 kg
[2024-11-01 15:07] LABS: KETONE, URINE AUTO RFX NEGATIVE (NEGATIVE); LEUKOCYTE ESTERASE UR AUTO RFX 2+ (NEGATIVE); MUCUS, URINE RFX SMALL (NEGATIVE); NITRITE, URINE AUTO RFX NEGATIVE (NEGATIVE); RBC, URINE AUTO RFX 22 /HPF (0-3); SQUAM EPITHELIAL CELL UR AURFX 7 /HPF (0-6); WBC, URINE AUTO RFX 12 /HPF (0-3)
[2024-11-01 16:03] LABS: Trichomonas vaginalis (AMP) NOT DETECTED (NEGATIVE)
[2024-11-01 16:26] LABS: GC DNA AMPLIFICATION NEGATIVE (NEGATIVE)
[2024-11-01 19:56] VITALS: BP 113/62; TEMP 98.8; O2SAT 96
== END 2024-11-01 19:57 | disposition home or self-care (01) ==
LOC: M ED 12:43
DX: O23.41 Unspecified infection of urinary tract in pregnancy, first trimester (principal); Z3A.01 Less than 8 weeks gestation of pregnancy; O99.281 Endocrine, nutritional and metabolic diseases complicating pregnancy, first trimester; O99.351 Diseases of the nervous system complicating pregnancy, first trimester; O10.011 Pre-existing essential hypertension complicating pregnancy, first trimester; N39.0 Urinary tract infection, site not specified; O99.611 Diseases of the digestive system complicating pregnancy, first trimester; K21.9 Gastro-esophageal reflux disease without esophagitis; E03.9 Hypothyroidism, unspecified; G47.33 Obstructive sleep apnea (adult) (pediatric); Z88.0 Allergy status to penicillin; Z88.1 Allergy status to other antibiotic agents; Z88.8 Allergy status to other drugs, medicaments and biological substances; Z79.899 Other long term (current) drug therapy

== ENCOUNTER 2024-11-03 02:03 | Emergency (ER) | payer OTHER ==
[~2024-11-03] VITALS: Ht 162.6 cm; Wt 136.2 kg
[2024-11-03 05:28] LABS: BASO # 0.1 10^3/uL (0.0-0.2); BASO % 0.4 % (0.0-1.0); EOS # 0.2 10^3/uL (0.0-0.5); EOS % 1.0 % (0.0-3.0); LYMPH # 4.2 10^3/uL (1.5-5.0); LYMPH % 24.3 % (24.0-44.0); MONO # 1.0 10^3/uL (0.0-0.8); MONO % 5.9 % (2.0-8.0); NEUTROPHILS # 11.8 10^3/uL (1.5-8.5); NEUTROPHILS % 67.7 % (36.0-66.0); PLATELET COUNT, AUTOMATED 241 10^3/uL (150-450)
[2024-11-03] MEDS: ACETAMINOPHEN *IV* 1,000 MG in IV 1 EA IV ONE (05:34)
[2024-11-03 05:58] LABS: CALCIUM LEVEL 8.7 MG/DL (8.5-10.1); CARBON DIOXIDE LEVEL 22 MMOL/L (20-31); CHLORIDE LEVEL 105 MMOL/L (98-107); CREATININE FOR GFR 0.82 MG/DL (0.55-1.30); GLOMERULAR FILTRATION RATE > 90.0 (>60); POTASSIUM SERUM 4.1 MMOL/L (3.5-5.1); SODIUM LEVEL 140 MMOL/L (136-145)
[2024-11-03 06:11] LABS: HCG, SERUM QUANTITATIVE 14917.1 MIU/ML (<4.2)
[2024-11-03] MEDS ORDERED: RHOGAM 300MCG (1500IU) INJ IM ONE (08:05)
[2024-11-03 09:52] VITALS: BP 130/79; TEMP 97.9; O2SAT 95
== END 2024-11-03 10:04 | disposition home or self-care (01) ==
LOC: M ED 02:03
DX: O20.0 Threatened abortion (principal); O20.8 Other hemorrhage in early pregnancy; Z3A.01 Less than 8 weeks gestation of pregnancy; O99.351 Diseases of the nervous system complicating pregnancy, first trimester; O10.011 Pre-existing essential hypertension complicating pregnancy, first trimester; G47.33 Obstructive sleep apnea (adult) (pediatric); Z88.0 Allergy status to penicillin; Z88.1 Allergy status to other antibiotic agents; Z88.8 Allergy status to other drugs, medicaments and biological substances; Z79.52 Long term (current) use of systemic steroids; Z79.899 Other long term (current) drug therapy
CPT/HCPCS: 76801; 80048; 84702; 85025; 86901; 96372; 96374; 99284; J0131

== ENCOUNTER → 2024-11-18 | Outpatient (REF) | payer OTHER | LOC: M LAB REF 09:32 | PROVIDERS: ATTEND Obstetrics & Gynecology Reproductive Endocrinology | DX: O02.1 Missed abortion (principal); Z3A.00 Weeks of gestation of pregnancy not specified ==

== ENCOUNTER → 2024-11-26 | Outpatient (REF) | payer OTHER | LOC: M LAB REF 10:24 | PROVIDERS: ATTEND Obstetrics & Gynecology Reproductive Endocrinology | DX: O02.1 Missed abortion (principal) ==

== ENCOUNTER → 2025-02-08 | Outpatient (CLI) | payer OTHER ==
[~2025-02-08] MED LIST changes: -IBUP-1022 PO; +IBUP600T42 PO
== END ==
LOC: M LAB 11:32
PROVIDERS: ATTEND Obstetrics & Gynecology Reproductive Endocrinology
DX: Z31.41 Encounter for fertility testing (principal)

== ENCOUNTER → 2025-02-18 | Outpatient (CLI) | payer OTHER ==
[2025-02-18 09:02] LABS: HCG, SERUM QUANTITATIVE < 2.6 MIU/ML (<4.2)
[2025-02-18 09:07] LABS: ESTRADIOL 51.7 PG/ML; LUTEINIZING HORMONE 3.7 mIU/ML; PROGESTERONE 0.61 NG/ML
== END ==
LOC: M RAD 07:35
PROVIDERS: ATTEND Obstetrics & Gynecology Reproductive Endocrinology
DX: N97.9 Female infertility, unspecified (principal)

== ENCOUNTER → 2025-02-25 | Outpatient (CLI) | payer OTHER ==
[2025-02-25 09:16] LABS: LUTEINIZING HORMONE 5.5 mIU/ML; PROGESTERONE 0.21 NG/ML
[2025-02-25 09:17] LABS: ESTRADIOL 402.9 PG/ML
== END ==
LOC: M RAD 08:03
PROVIDERS: ATTEND Obstetrics & Gynecology Reproductive Endocrinology
DX: N97.9 Female infertility, unspecified (principal)

== ENCOUNTER → 2025-03-06 | Outpatient (CLI) | payer OTHER ==
[2025-03-06 08:06] LABS: ESTRADIOL 1353.7 PG/ML; PROGESTERONE 31.67 NG/ML
== END ==
LOC: M LAB 06:31
PROVIDERS: ATTEND Obstetrics & Gynecology Reproductive Endocrinology
DX: Z31.49 Encounter for other procreative investigation and testing (principal)

== ENCOUNTER → 2025-03-13 | Outpatient (CLI) | payer OTHER ==
[2025-03-13 09:56] LABS: HCG, SERUM QUANTITATIVE 24.3 MIU/ML (<4.2)
[2025-03-13 10:00] LABS: PROGESTERONE 27.65 NG/ML
== END ==
LOC: M LAB 08:33
PROVIDERS: ATTEND Obstetrics & Gynecology Reproductive Endocrinology
DX: Z32.00 Encounter for pregnancy test, result unknown (principal)

== ENCOUNTER → 2025-03-15 | Outpatient (CLI) | payer OTHER ==
[2025-03-15 10:04] LABS: HCG, SERUM QUANTITATIVE 16.3 MIU/ML (<4.2)
[2025-03-15 10:08] LABS: PROGESTERONE 26.22 NG/ML
== END ==
LOC: M LAB 08:31
PROVIDERS: ATTEND Obstetrics & Gynecology Reproductive Endocrinology
DX: Z32.01 Encounter for pregnancy test, result positive (principal)

== ENCOUNTER → 2025-03-17 | Outpatient (CLI) | payer OTHER ==
[2025-03-17 07:44] LABS: HCG, SERUM QUANTITATIVE 5.8 MIU/ML (<4.2)
[2025-03-17 07:48] LABS: ESTRADIOL 1340.1 PG/ML; PROGESTERONE 23.45 NG/ML
== END ==
LOC: M LAB 06:52
PROVIDERS: ATTEND Obstetrics & Gynecology Reproductive Endocrinology
DX: Z32.01 Encounter for pregnancy test, result positive (principal)

== ENCOUNTER → 2025-03-20 | Outpatient (CLI) | payer OTHER | LOC: M LAB 07:25 | PROVIDERS: ATTEND Nurse Practitioner Family | DX: O02.1 Missed abortion (principal) ==